=== PATIENT | female | born 1960 | race Caucasian/White ===

== ENCOUNTER 2017-07-17 07:22 | Outpatient (CLI) | payer OTHER ==
[~2017-07-17 07:22] MED LIST: CEFAZOLIN 2 GM/50 ML (PMX) 50 ML IVPB; SOD CHLORIDE 0.9% 1,000 ML IV
[2017-07-17 09:05] LABS: ADD MAN DIFF? NO
[2017-07-17 09:12] LABS: BASOPHIL # 0.1 10^3/ul (0.0-0.1); BASOPHILS % 0.8 % (0.0-2.0); EOSINOPHILS # 0.3 10^3/ul (0.0-0.5); EOSINOPHILS % 4.5 % (0.0-7.0); HEMATOCRIT 41.2 % (37.0-47.0); HEMOGLOBIN 13.7 g/dl (12.0-16.0); LYMPHOCYTES # 2.5 10^3/ul (0.8-2.9); LYMPHOCYTES % 33.3 % (15.0-51.0); MEAN CORPUSCULAR HEMOGLOBIN 28.7 pg (29.0-33.0); MEAN CORPUSCULAR HGB CONC 33.3 g/dl (32.0-37.0); MEAN CORPUSCULAR VOLUME 86.4 fl (82.0-101.0); MEAN PLATELET VOLUME 10.2 fl (7.4-10.4); MONOCYTE # 0.5 10^3/ul (0.3-0.9); PLATELET COUNT 400 10^3/UL (140-415); RED BLOOD COUNT 4.77 10^6/ul (4.20-5.40); RED CELL DISTRIBUTION WIDTH 11.8 % (11.5-14.5)
[2017-07-17 09:12] LABS: WHITE BLOOD COUNT 7.4 10^3/ul (4.8-10.8)
[2017-07-17 09:16] LABS: PROTIME 12.2 Sec (11.9-14.9)
[2017-07-17 09:17] LABS: ALANINE AMINOTRANSFERASE 55 IU/L (13-69); ALBUMIN 3.9 g/dl (3.3-4.9); ALBUMIN/GLOBULIN RATIO 1.05; ALKALINE PHOSPHATASE 130 IU/L (42-121); ANION GAP 14 (8-16); ASPARTATE AMINO TRANSFERASE 24 IU/L (15-46); BILIRUBIN,INDIRECT 0.1 mg/dl (0-1.1); BILIRUBIN,TOTAL 0.1 mg/dl (0.2-1.3); CARBON DIOXIDE 29 mmol/L (21-31); CHLORIDE 104 mmol/L (97-110); GLUCOSE 258 mg/dl (70-220); PARTIAL THROMBOPLASTIN TIME 28.3 Sec (25.0-35.0); TOTAL PROTEIN 7.6 g/dl (6.1-8.1)
[2017-07-17 09:21] LABS: BLOOD UREA NITROGEN 14 mg/dl (7-20); CALCIUM 9.1 mg/dl (8.4-10.2); CREATININE 0.99 mg/dl (0.44-1.00); POTASSIUM 4.6 mmol/L (3.5-5.1); SODIUM 142 mmol/L (135-144)
== END 2017-07-17 13:30 | disposition home or self-care (01) ==
LOC: SDS 07:22 → LAB 07:22
DX: Z01.818 Encounter for other preprocedural examination (principal); N60.12 Diffuse cystic mastopathy of left breast
CPT/HCPCS: 71045; 80053; 82962; 85025; 85610; 85730; 93005

== ENCOUNTER 2017-09-02 05:30 | Day surgery (SDC) | payer OTHER ==
[2017-09-02] MEDS: MOXIFLOXACIN 0.5% 3 ML OPH OPER (05:58)
[2017-09-02] MEDS: BROMFENAC SODIUM 1.7 ML OPH DROP OPER (05:59)
[2017-09-02] MEDS: CYCLOPENTOLATE 2% 2 ML OPH OPER (05:59)
[2017-09-02] MEDS: LIDOCAINE 3.5% GEL TUBE OPER (05:59)
[2017-09-02] MEDS: TETRACAINE 0.5% 4 ML OPH OPER (05:59)
[2017-09-02] MEDS: PHENYLephrine 10% 5 ML OPH OPER (06:00)
[2017-09-02] MEDS: LACTATED RINGER'S 1,000 ML IV (06:00)
[2017-09-02] MEDS: TROPICAMIDE 1% 3 ML OPH OPER (06:03)
[2017-09-02] MEDS ORDERED: TOBRAMYCIN 0.3% 3.5 GM OPH OINT (06:27)
[2017-09-02] MEDS ORDERED: LIDOCAINE 1%/EPI 30 ML INJ (06:27)
[2017-09-02] MEDS ORDERED: CARBACHOL 0.01% 1.5 ML OPH INJ (06:27)
[2017-09-02] MEDS ORDERED: EPINEPHrine 1 MG INJ ×2 (06:28→06:55)
[2017-09-02] MEDS ORDERED: NA HYALURONATE/CHONDROITIN 0.5 ML SYG (06:28)
[2017-09-02] MEDS ORDERED: TRYPAN BLUE 0.5 ML SYG IO (06:45)
[2017-09-02] MEDS: LIDOCAINE 1%/EPI 30 ML INJ INJ (07:14)
[2017-09-02] MEDS: TOBRAMYCIN 0.3% 3.5 GM OPH OINT RIGHT EYE (07:14)
[2017-09-02] MEDS ORDERED: FENTAnyl 50 MCG/ML VIAL (07:22)
[2017-09-02] MEDS ORDERED: LABETALOL HCL 20MG INJ IV (07:30)
[2017-09-02] MEDS ORDERED: FENTAnyl 50 MCG/ML VIAL IV (07:30)
[2017-09-02] MEDS ORDERED: hydrALAzine 20 MG INJ IV (07:30)
[2017-09-02] MEDS ORDERED: MEPERIDINE 25 MG INJ IV ×2 (07:30→09:00)
[2017-09-02] MEDS ORDERED: DIPHENHYDRAMINE 50 MG INJ IV ×2 (07:30→09:00)
[2017-09-02] MEDS: NA HYALURONATE/CHONDROITIN 0.5 ML SYG RIGHT EYE (07:30)
[2017-09-02] MEDS ORDERED: LABETALOL HCL 20MG INJ (08:00)
[2017-09-02] MEDS: CARBACHOL 0.01% 1.5 ML OPH INJ IO (08:04)
[2017-09-02] MEDS ORDERED: CEFAZOLIN 1 GM INJ (08:05)
[2017-09-02] MEDS ORDERED: ONDANSETRON 4 MG INJ (08:35)
[2017-09-02] MEDS: ONDANSETRON 4 MG INJ IV (08:44)
[2017-09-02] MEDS ORDERED: ONDANSETRON 4 MG INJ IV (09:00)
[2017-09-02] MEDS ORDERED: METOCLOPRAMIDE 10 MG INJ IV (09:00)
== END 2017-09-02 09:40 | disposition home or self-care (01) ==
LOC: SDS 05:30
DX: H26.05 Posterior subcapsular polar infantile and juvenile cataract (principal); E11.9 Type 2 diabetes mellitus without complications; I10 Essential (primary) hypertension; E78.5 Hyperlipidemia, unspecified; E66.01 Morbid (severe) obesity due to excess calories; Z68.38 Body mass index [BMI] 38.0-38.9, adult
CPT/HCPCS: 66984; 82962

== ENCOUNTER 2018-01-22 08:37 | Day surgery (SDC) | payer OTHER ==
[~2018-01-22 08:37] MED LIST changes: +CEFAZOLIN 1 GM INJ; -CEFAZOLIN 2 GM/50 ML (PMX) 50 ML IVPB; -SOD CHLORIDE 0.9% 1,000 ML IV
[2018-01-22] MEDS ORDERED: CEFAZOLIN 2 GM/50 ML (PMX) 50 ML IVPB (09:30)
[2018-01-22 09:34] LABS: ADD MAN DIFF? NO
[2018-01-22] MEDS: SOD CHLORIDE 0.9% 1,000 ML IV (09:40)
[2018-01-22 09:41] LABS: WHITE BLOOD COUNT 8.2 10^3/ul (4.8-10.8)
[2018-01-22 09:41] LABS: BASOPHIL # 0.1 10^3/ul (0.0-0.1); BASOPHILS % 0.7 % (0.0-2.0); EOSINOPHILS # 0.5 10^3/ul (0.0-0.5); EOSINOPHILS % 6.6 % (0.0-7.0); HEMATOCRIT 39.1 % (37.0-47.0); HEMOGLOBIN 13.3 g/dl (12.0-16.0); LYMPHOCYTES # 2.3 10^3/ul (0.8-2.9); LYMPHOCYTES % 28.3 % (15.0-51.0); MEAN CORPUSCULAR HEMOGLOBIN 29.8 pg (29.0-33.0); MEAN CORPUSCULAR VOLUME 87.5 fl (82.0-101.0); MEAN PLATELET VOLUME 11.3 fl (7.4-10.4); MONOCYTE # 0.5 10^3/ul (0.3-0.9); MONOCYTES % 5.6 % (0.0-11.0); NEUTROPHIL # 4.8 10^3/ul (1.6-7.5); NEUTROPHILS % 58.6 % (39.0-77.0); PLATELET COUNT 292 10^3/UL (140-415); RED BLOOD COUNT 4.47 10^6/ul (4.20-5.40); RED CELL DISTRIBUTION WIDTH 11.9 % (11.5-14.5)
[2018-01-22] MEDS ORDERED: SUCCINYLCHOLINE CHLORIDE 100 MG/5 ML SYG IV (09:56)
[2018-01-22] MEDS ORDERED: ROCURONIUM 50 MG INJ (09:56)
[2018-01-22] MEDS ORDERED: PROPOFOL 20 ML (09:56)
[2018-01-22] MEDS ORDERED: LIDOCAINE 100 MG SYRINGE (09:56)
[2018-01-22] MEDS ORDERED: FENTAnyl 50 MCG/ML VIAL (09:57)
[2018-01-22 09:58] LABS: ALANINE AMINOTRANSFERASE 34 IU/L (13-69); ALBUMIN/GLOBULIN RATIO 1.11; ALKALINE PHOSPHATASE 129 IU/L (42-121); ANION GAP 12 (8-16); ASPARTATE AMINO TRANSFERASE 30 IU/L (15-46); BILIRUBIN,INDIRECT 0.5 mg/dl (0-1.1); BILIRUBIN,TOTAL 0.5 mg/dl (0.2-1.3); BLOOD UREA NITROGEN 19 mg/dl (7-20); CALCIUM 9.3 mg/dl (8.4-10.2); CARBON DIOXIDE 27 mmol/L (21-31); CHLORIDE 108 mmol/L (97-110); CREATININE 0.86 mg/dl (0.44-1.00); GLUCOSE 201 mg/dl (70-220); POTASSIUM 4.2 mmol/L (3.5-5.1); SODIUM 143 mmol/L (135-144); TOTAL PROTEIN 7.6 g/dl (6.1-8.1)
[2018-01-22] MEDS ORDERED: NEOSTIGMINE 3 MG/3 ML SYRINGE (10:04)
[2018-01-22] MEDS ORDERED: GLYCOPYRROLATE 0.4 MG INJ (10:04)
[2018-01-22] MEDS ORDERED: ONDANSETRON 4 MG INJ (10:05)
[2018-01-22 10:06] LABS: PARTIAL THROMBOPLASTIN TIME 28.2 Sec (25.0-35.0); PROTIME 12.2 Sec (11.9-14.9)
[2018-01-22] MEDS: BUPIVACAINE 0.5%/EPI (SDV) 30 ML INJ (10:47)
[2018-01-22] MEDS ORDERED: FENTAnyl 50 MCG/ML VIAL IV ×3 (11:30)
[2018-01-22] MEDS ORDERED: LABETALOL HCL 20MG INJ IV (11:30)
[2018-01-22] MEDS ORDERED: ONDANSETRON 4 MG INJ IV (11:30)
[2018-01-22] MEDS ORDERED: OXYCODONE/ACETAMINOPHEN (5/325) TAB PO ×2 (11:30)
[2018-01-22] MEDS ORDERED: HYDROmorphONE 1 MG/5 ML IV SYRINGE IV ×3 (11:30)
== END 2018-01-22 12:58 | disposition home or self-care (01) ==
LOC: SDS 08:37
DX: N60.02 Solitary cyst of left breast (principal); E03.9 Hypothyroidism, unspecified; E11.9 Type 2 diabetes mellitus without complications; E78.5 Hyperlipidemia, unspecified; I10 Essential (primary) hypertension; E66.01 Morbid (severe) obesity due to excess calories; Z68.39 Body mass index [BMI] 39.0-39.9, adult
CPT/HCPCS: 19120; 71045; 80053; 82962; 85025; 85610; 85730; 88307; 93005